=== PATIENT | female | born 1955 | race Caucasian/White ===

== ENCOUNTER → 2022-07-24 | Outpatient (CLI) | payer MEDICARE ==
[~2022-07-24] MED LIST: LIDOCAINE 1% 10 ML MULTIDOSE VIAL IJ ONE
== END ==
LOC: US 10:15
PROVIDERS: ATTEND Otolaryngology
DX: E04.1 Nontoxic single thyroid nodule (principal)
CPT/HCPCS: 10005; 88172; 88173; 88304